=== PATIENT | female | born 1970 | race Caucasian/White ===

== ENCOUNTER 2017-06-25 09:01 | Emergency (ER) | payer MEDICAID ==
[~2017-06-25] VITALS: Ht 165.1 cm; Wt 75.0 kg
[2017-06-25] MEDS ORDERED: HYDROCODONE/ACETAMINOPHEN 5/325MG TABLET PO ONE (09:30)
[2017-06-25] MEDS ORDERED: TETANUS, DIPHTHERIA, PERTUSSIS VAC/PF 0.5ML (>7YR OLD) IM ONE (09:30)
[2017-06-25] MEDS ORDERED: LIDOCAINE HCL 1% 20ML VIAL (Pyxis) INJ MC ONE (09:30)
[2017-06-25] MEDS ORDERED: BACITRACIN ZINC OINT UDPKT TOP ONE (09:30)
[2017-06-25] MEDS ORDERED: ONDANSETRON 4MG ODT PO ONE (09:30)
[2017-06-25] MEDS ORDERED: LIDOCAINE HCL/PF 1% 10 MG/ML 5ML VIAL IJ NR (10:30)
[2017-06-25] MEDS ORDERED: CEPHALEXIN 500MG CAPSULE PO ONE (11:15)
[2017-06-25 13:39] VITALS: BP 131/60
== END 2017-06-25 13:43 | disposition home or self-care (01) ==
LOC: ER 09:01
DX: S61.412A Laceration without foreign body of left hand, initial encounter (principal); Y93.G3 Activity, cooking and baking; Y92.89 Other specified places as the place of occurrence of the external cause; Z23 Encounter for immunization; E11.9 Type 2 diabetes mellitus without complications; F17.210 Nicotine dependence, cigarettes, uncomplicated; E78.00 Pure hypercholesterolemia, unspecified
CPT/HCPCS: 12002; 73130; 90471; 90715; 99284; J3490; Q0162; Z7610

== ENCOUNTER 2017-06-27 07:28 | Emergency (ER) | payer MEDICAID ==
[~2017-06-27] VITALS: Ht 162.6 cm; Wt 80.0 kg
[2017-06-27 07:33] VITALS: BP 117/69
[2017-06-27] MEDS ORDERED: BACITRACIN ZINC OINT UDPKT TOP ONE (08:00)
== END 2017-06-27 09:17 | disposition home or self-care (01) ==
LOC: ER 07:57
DX: S61.412D Laceration without foreign body of left hand, subsequent encounter (principal); X58.XXXD Exposure to other specified factors, subsequent encounter; Y93.89 Activity, other specified; Y99.8 Other external cause status; Y92.89 Other specified places as the place of occurrence of the external cause
CPT/HCPCS: 99283; X7700; Z7610; A4565

== ENCOUNTER 2017-07-06 08:21 | Emergency (ER) | payer MEDICAID ==
[~2017-07-06] VITALS: Ht 162.6 cm; Wt 85.0 kg
[2017-07-06 08:24] VITALS: BP 102/75
== END 2017-07-06 09:10 | disposition home or self-care (01) ==
LOC: ER 08:30
DX: Z48.02 Encounter for removal of sutures (principal); E11.9 Type 2 diabetes mellitus without complications; X58.XXXD Exposure to other specified factors, subsequent encounter
CPT/HCPCS: 99281; Z7610